=== PATIENT | female | born 1990 | race Caucasian/White ===

== ENCOUNTER 2018-10-24 13:08 | Emergency (ER) | payer BC ==
[2018-10-24] MEDS ORDERED: Sodium Chloride 0.9% 1000 ML 1,000 ML IV STA (13:39)
[2018-10-24 13:58] LABS: BASOPHIL % 0.2 % (0.0-0.4); Basophil (Absolute #) 0.02 (0-0.4); Eosinophil % 1.4 % (0.00-5.0); Eosinophil (Absolute #) 0.18 (0-0.5); Granulocytes % 85.7 % (36.0-66.0); Hemoglobin 14.5 gm/dl (12.0-16.0); Lymphocyte (Absolute #) 1.06 (1.0-4.6); Mean Cell Volume 85.1 fl (78-100); Mean Corpuscular Hemoglobin 27.4 pg (26-32); Mean Corpuscular Hgb Concent. 32.2 g/dl (32-36); Mean Platelet Volume 10.4 fl (6-9.5); Monocyte (Absolute #) 0.63 (0.0-1.3); Monocytes % 4.7 % (0.0-12.0); Platelet Count 279 K/mm3 (150-450); Red Blood Count 5.29 M/mm3 (4.1-5.4); Red Cell Distribution Width 14.4 % (11.5-14.0); White Blood Count 13.3 K/mm3 (4.0-10.5)
[2018-10-24 14:15] LABS: ANION GAP 14.6 MEQ/L (5-15); BLOOD UREA NITROGEN 15 mg/dL (7-17); CHLORIDE 104 mmol/L (98-107); Calcium 9.3 mg/dL (8.4-10.2); Carbon Dioxide 26 mmol/L (22-30); Creatinine 1 0.71 mg/dL (0.52-1.04); Glucose 90 mg/dL (74-106); MAGNESIUM 1.9 mg/dL (1.6-2.3); Potassium 4.8 mmol/L (3.5-5.1); SODIUM 140 mmol/L (137-145)
[2018-10-24] MEDS ORDERED: Sodium Chloride 0.9% 1000 ML 1,000 ML ONE (14:29)
[2018-10-24] MEDS ORDERED: TYLENOL 325 MG PO STA (14:34)
[2018-10-24] MEDS ORDERED: TYLENOL 325 MG ONE (14:37)
[2018-10-24] MEDS ORDERED: ROCEPHIN 1 Gm-D5w 50 ml Bag** 1 G/50 ML IVPB IV STA (14:39)
--- NOTE | 2018-10-24 15:20 | XRAY ---
Indication: Right head injury following syncope. Multiple contiguous axial images obtained through the head without contrast. Comparison: July 21, 2007. Again normal appearing brain parenchyma, ventricles, and bony calvarium. Visualized paranasal sinuses and mastoid air cells are pneumatized and clear. Impression: Again normal CT head without contrast exam. CT DI 51.17
[2018-10-24] MEDS ORDERED: TORAdol 30 mg Injection IV ONE (15:33)
--- NOTE | 2018-10-24 15:34 | ERPHSYRPT ---
- History of Present Illness Time Seen by Provider: 10/24/18 13:27 Source: patient Exam Limitations: clinical condition Patient Subjective Stated Complaint: pt was here for a syncopal episode today, she states she has had loose stools this morning and not feeling well, has not eat today. bs was 105 Triage Nursing Assessment: pt is now alert, but appears tried, resp easy, skin w /d/p. moves all ext well, Physician History: PATIENT WITH A HISTORY OF DEPRESSION COMPLAINS OF WATERY DIARRHEA X 4-5 EPISODES AT WORK THIS MORNING, FELT DIZZY HAS SYNCOPAL EPISODE FELL AND STRUCK FOREHEAD, WITH LOSS OF CONSCIOUSNESS. HAS HEADACHE, DENIES NECK PAIN, NAUSEA, EMESIS, BLURRED VISION. Timing/Duration: today Severity: moderate Character of Deficits: none Deficits: no difficulties Baseline/Normal Cognition: alert oriented x 3 Current Cognition: alert oriented x 3 Baseline Gait: walks w/o assistance Associated Symptoms: headache Allergies/Adverse Reactions: No Known Drug Allergies Allergy (Unverified 11/10/12 15:58) Home Medications: Escitalopram Oxalate 10 mg [Lexapro 10 MG] 10 mg DAILY 10/24/18 [History] Norethindrone AC-Eth Estradiol [Microgestin 21 1.5-30 Tab] 1 ea DAILY 10/24/18 [ History] Hx Tetanus, Diphtheria Vaccination/Date Given: Yes Hx Influenza Vaccination/Date Given: No Hx Pneumococcal Vaccination/Date Given: No Immunizations Up to Date: Yes - Review of Systems Constitutional: No Fever, No Chills Eyes: No Symptoms Ears, Nose, & Throat: No Symptoms Respiratory: No Cough, No Dyspnea Cardiac: No Chest Pain, No Edema, No Syncope Abdominal/Gastrointestinal: Diarrhea, No Abdominal Pain, No Nausea, No Vomiting Genitourinary Symptoms: No Dysuria Musculoskeletal: No Back Pain, No Neck Pain Skin: No Rash Neurological: Headache, No Dizziness, No Focal Weakness, No Sensory Changes Psychological: No Symptoms Endocrine: No Symptoms All Other Systems: Reviewed and Negative - Past Medical History Pertinent Past Medical History: No Neurological History: Migraines ENT History: No Pertinent History Cardiac History: No Pertinent History Respiratory History: No Pertinent History Endocrine Medical History: No Pertinent History Musculoskeletal History: No Pertinent History GI Medical History: No Pertinent History History: No Pertinent History Psycho-Social History: No Pertinent History Female Reproductive Disorders: No Pertinent History - Past Surgical History Past Surgical History: No Neuro Surgical History: No Pertinent History - Social History Smoking Status: Never smoker Exposure to second hand smoke: No Drug Use: none Patient Lives Alone: No - Female History Hx Last Menstrual Period: now Hx Now: No - Nursing Vital Signs Nursing Vital Signs: Initial Vital Signs Temperature 97.2 F 10/24/18 13:12 Pulse Rate 83 10/24/18 13:12 Respiratory Rate 16 10/24/18 13:12 Blood Pressure 107/73 10/24/18 13:12 O2 Sat by Pulse Oximetry 99 10/24/18 13:12 Pain Scale Pain Intensity 8 - Louann Coma Scale Best Eye Response (Luke): (4) open spontaneously Best Verbal Response (Luke): (5) oriented Best Motor Response (Louann): (6) obeys commands Louann Total: 15 - Physical Exam General Appearance: no apparent distress, other (THERE IS LATERAL FOREHEAD SWELLING WITH TENDERNESS ADJACENT TO RIGHT EYEBROW) Eye Exam: bilateral eye: normal inspection, PERRL, EOMI Ears, Nose, Throat Exam: normal ENT inspection, moist mucous membranes Neck Exam: normal inspection, non-tender, supple Respiratory: normal breath sounds, lungs clear, airway intact, No respiratory distress Cardiovascular: regular rate/rhythm, No edema Gastrointestinal: soft, No tenderness, No distention Back Exam: normal inspection Extremity Exam: normal inspection, No pedal edema Peripheral Pulses: carotid (R): 2+, carotid (L): 2+, femoral (R): 2+, femoral (L ): 2+, dorsalis-pedis (R): 2+, dorsalis-pedis (L): 2+ Mental Status: alert, 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: normal hearing, tongue midline Coordination/Gait: normal finger to nose DTR: bicep (R): 2+, bicep (L): 2+, tricep (R): 2+, tricep (L): 2+, knee (R): 2+ , knee (L): 2+, ankle (R): 2+, ankle (L): 2+ Skin Exam: normal color SpO2 Interpretation: normal SpO2: 99 - Course EKG Interpreted by Me: RATE, Sinus Rhythm - CT Exams Head CT Interpretation: Discussed w/radiologist, No/Intracranial Hemorrhag Ordered Tests: Active Orders 24 hr Category Date Time Status EKG-ER Only STAT Care 10/24/18 13:45 Active HEAD WITHOUT CONTRAST [CT] Stat Exams 10/24/18 13:39 Completed BMP Stat Lab 10/24/18 13:57 Completed CBC W DIFF Stat Lab 10/24/18 13:57 Completed HCG,QUALITATIVE URINE Stat Lab 10/24/18 14:34 Completed MAGNESIUM Stat Lab 10/24/18 13:57 Completed Medication Summary Discontinued Medications Generic Name Dose Route Start Last Admin Trade Name Wagner PRN Reason Stop Dose Admin Acetaminophen 650 mg 10/24/18 14:34 10/24/18 14:38 Tylenol 325 Mg PO 10/24/18 14:35 650 mg STAT STA Administration Acetaminophen Confirm 10/24/18 14:37 Tylenol 325 Mg Administered 10/24/18 14:38 Dose 650 mg .ROUTE .STK-MED ONE Sodium Chloride 1,000 mls @ 999 mls/hr 10/24/18 13:39 10/24/18 14:32 Sodium Chloride 0.9% 1000 Ml IV 10/24/18 14:39 999 mls/hr .Q1H1M STA Administration Sodium Chloride Confirm 10/24/18 14:29 Sodium Chloride 0.9% 1000 Ml Administered 10/24/18 14:30 Dose 1,000 mls @ ud .ROUTE .STK-MED ONE Ceftriaxone Sodium/Dextrose 1 g in 50 mls @ 100 mls/hr 10/24/18 14:39 15:26 Rocephin 1 Gm-D5w 50 Ml Bag IV 10/24/18 15:08 Not Given STAT STA Ketorolac Tromethamine 30 mg 10/24/18 15:33 Toradol 30 Mg Injection IV 10/24/18 15:34 STAT ONE Lab/Rad Data: Laboratory Result Diagrams 10/24/18 13:57 10/24/18 13:57 Laboratory Results 10/24/18 10/24/18 10/24/18 Range/Units 14:42 14:34 13:57 WBC (4.0-10.5) K/mm3 RBC (4.1-5.4) M/mm3 Hgb (12.0-16.0) gm/dl Hct (35-47) % MCV (78-100) fl MCH (26-32) pg MCHC (32-36) g/dl RDW (11.5-14.0) % Plt Count (150-450) K/mm3 MPV (6-9.5) fl Gran % (36.0-66.0) % Eos # (Auto) (0-0.5) Absolute Lymphs (auto) (1.0-4.6) Absolute Monos (auto) (0.0-1.3) Lymphocytes % (24.0-44.0) % Monocytes % (0.0-12.0) % Eosinophils % (0.00-5.0) % Basophils % (0.0-0.4) % Absolute Granulocytes (1.4-6.9) Basophils # (0-0.4) Sodium 140 (137-145) mmol/L Potassium 4.8 (3.5-5.1) mmol/L Chloride 104 (98-107) mmol/L Carbon Dioxide 26 (22-30) mmol/L Anion Gap 14.6 (5-15) MEQ/L BUN 15 (7-17) mg/dL Creatinine 0.71 (0.52-1.04) mg/dL Estimated GFR > 60.0 ML/MIN Glucose 90 (74-106) mg/dL Calcium 9.3 (8.4-10.2) mg/dL Magnesium 1.9 (1.6-2.3) mg/dL Urine HCG, Qual NEGATIVE (Negative) Stl C. diff Tox B Gene NEGATIVE (NEGATIVE) Campylobacter (PCR) Pending C.difficile [id number]-[id number] PRESUMPTIVE NEGATIVE (NEGATIVE) 10/24/18 Range/Units 13:57 WBC 13.3 H (4.0-10.5) K/mm3 RBC 5.29 (4.1-5.4) M/mm3 Hgb 14.5 (12.0-16.0) gm/dl Hct 45.0 (35-47) % MCV 85.1 (78-100) fl MCH 27.4 (26-32) pg MCHC 32.2 (32-36) g/dl RDW 14.4 H (11.5-14.0) % Plt Count 279 (150-450) K/mm3 MPV 10.4 H (6-9.5) fl Gran % 85.7 H (36.0-66.0) % Eos # (Auto) 0.18 (0-0.5) Absolute Lymphs (auto) 1.06 (1.0-4.6) Absolute Monos (auto) 0.63 (0.0-1.3) Lymphocytes % 8.0 L (24.0-44.0) % Monocytes % 4.7 (0.0-12.0) % Eosinophils % 1.4 (0.00-5.0) % Basophils % 0.2 (0.0-0.4) % Absolute Granulocytes 11.40 H (1.4-6.9) Basophils # 0.02 (0-0.4) Sodium (137-145) mmol/L Potassium (3.5-5.1) mmol/L Chloride (98-107) mmol/L Carbon Dioxide (22-30) mmol/L Anion Gap (5-15) MEQ/L BUN (7-17) mg/dL Creatinine (0.52-1.04) mg/dL Estimated GFR ML/MIN Glucose (74-106) mg/dL Calcium (8.4-10.2) mg/dL Magnesium (1.6-2.3) mg/dL Urine HCG, Qual (Negative) Stl C. diff Tox B Gene (NEGATIVE) Campylobacter (PCR) C.difficile [id number]-[id number] (NEGATIVE) - Progress Progress Note: 10/24/18 16:03 ORTHOSTATIC VITALS, IV NORMAL SALINE 1 LITER OVER 1 HOUR, TYLENOL 650MG ORALLY , TORADOL 30MG IV - Departure Time of Disposition: 16:23 Departure Disposition: Home Clinical Impression: FOREHEAD CONTUSION, CONCUSSION, Syncope Condition: Stable Critical Care Time: No Referrals: RICARDO FRIEND MD [Primary Care Provider] - Additional Instructions: FOLLOW HEAD INJURY INSTRUCTIONS FOR 24 HOURS. APPLY ICE OVER FOREHEAD SWELLING EVERY 4 HOURS, 30 MINUTES FOR 48 HOURS. TYLENOL EVERY 4 HOURS NEEDED FOR PAIN. CONSULT YOUR PRIMARY CARE PROVIDER FOR EVALUATION IN 1 WEEK. BLOOD GLUCOSE OF 90 UPON ARRIVAL TO EMERGENCY ROOM, SUGGEST HAVING BREAKFEAST BEFORE GOING TO WORK.
[2018-10-24 15:41] LABS: TOXIGENIC C. DIFF ORG NEGATIVE (NEGATIVE)
[2018-10-24 15:42] LABS: 027 TOX PROD PRESUMPTIVE NEGATIVE (NEGATIVE)
[2018-10-24 16:31] LABS: Adenovirus F 40/41 NEGATIVE (NEGATIVE); Astrovirus NEGATIVE (NEGATIVE); C. difficile toxin A/B NEGATIVE (NEGATIVE); Campylobacter NEGATIVE (NEGATIVE); Cyclospora cayentanensis NEGATIVE (NEGATIVE); Entamoeaba histolytica NEGATIVE (NEGATIVE); Enteroaggregative E.coli NEGATIVE (NEGATIVE); Giardia lamblia NEGATIVE (NEGATIVE); Rotavirus A NEGATIVE (NEGATIVE); Salmonella NEGATIVE (NEGATIVE); Sapovirus NEGATIVE (NEGATIVE); Shiga-like toxin prod.E.coli NEGATIVE (NEGATIVE); Vibrio NEGATIVE (NEGATIVE)
[2018-10-24] MEDS ORDERED: TORAdol 30 mg Injection ONE (16:34)
[2018-10-24 16:45] VITALS: BP 117/76; PULSE 94; O2SAT 100
== END 2018-10-24 17:09 | disposition home or self-care (01) ==
LOC: ED 13:08
DX: S96.912A Strain of unspecified muscle and tendon at ankle and foot level, left foot, initial encounter (principal); R55 Syncope and collapse; S00.83XA Contusion of other part of head, initial encounter; S06.0X9A Concussion with loss of consciousness of unspecified duration, initial encounter; W01.198A Fall on same level from slipping, tripping and stumbling with subsequent striking against other object, initial encounter; F32.9 Major depressive disorder, single episode, unspecified; R42 Dizziness and giddiness; R51 Headache
CPT/HCPCS: 36415; 70450; 80048; 83735; 84703; 85025; 87493; 87507; 93005; 96360; 96374; 96375; 99284; J1885; A9270-GY